=== PATIENT | male | born 1985 | race African-American/Black ===

== ENCOUNTER 2020-02-02 12:25 | Emergency (ER) | payer MEDICAID ==
[~2020-02-02] VITALS: Ht 177.8 cm; Wt 78.0 kg
[2020-02-02 14:35] VITALS: BP 118/68
== END 2020-02-02 14:38 | disposition home or self-care (01) ==
LOC: EMS 12:27
DX: R05 Cough (principal); R09.81 Nasal congestion; R68.83 Chills (without fever); F17.210 Nicotine dependence, cigarettes, uncomplicated; Z20.828 Contact with and (suspected) exposure to other viral communicable diseases
CPT/HCPCS: 99406